=== PATIENT | female | born 1965 | race African-American/Black ===

== ENCOUNTER 2017-07-09 22:51 | Observation (INO) | payer OTHER ==
[2017-07-09 23:23] LABS: #Basophils 0.1 thou/uL (0.0-0.2); #Eosinphils 0.1 thou/uL (0.0-0.7); #Lymphocytes 1.7 thou/uL (1.20-3.40); #Monocytes 0.4 thou/uL (0.11-0.59); #Neutrophils 3.9 thou/uL (1.40-6.50); %Basophils 0.9 % (0.0-1.0); %Eosinophils 2.3 % (0.0-10.0); %Lymphocytes 26.9 % (21.0-51.0); %Monocytes 6.9 % (0.0-10.0); Hemoglobin 12.4 g/dL (12.0-16.0); Mean Corpuscular HGB CONC 31.7 g/dL (32.0-36.0); Mean Corpuscular Hemoglobin 29.5 pg (27.0-31.0); Mean Corpuscular Volume 92.8 fl (81.0-99.0); Mean Platelet Volume 6.8 fL (7.4-10.4); Platelet Count 317 thou/uL (130-400); RBC Distribution Width 12.3 % (11.5-14.5); Red Blood Cell (RBC) Count 4.19 mill/uL (4.20-5.40); White Blood Cell (WBC) Count 6.1 thou/uL (4.8-10.8)
[2017-07-09 23:23] LABS: Bilirubin Negative (Negative); Blood, Urine Negative (Negative); Clarity CLEAR (Clear); Glucose, Urine (Dipstick) Negative (Negative); Leukocyte Negative (Negative); Nitrite Negative (Negative); Protein, Urine (Dipstick) Trace mg/dL (Neg-Trace); Specific Gravity, Urine 1.018 (1.002-1.036); pH, Urine 7.5 (5.0-9.0)
[2017-07-09 23:46] LABS: ALT (SGPT) 18 U/L (8-55); AST (SGOT) 26 U/L (5-34); Albumin 3.9 g/dL (3.5-5.0); Alkaline Phosphatase 76 U/L (40-150); Anion Gap 12 mmol/L (10-20); BUN (Urea Nitrogen) 14 mg/dL (9.8-20.1); Bilirubin, Total 0.5 mg/dL (0.2-1.2); Calc. Creatinine Clearance 0 mL/min (70-130); Calcium 9.9 mg/dL (7.8-10.44); Carbon Dioxide 25 mmol/L (22-29); Chloride 106 mmol/L (98-107); Estimated GFR-MDRD Greater than 90; Globulin 4.5 g/dL (2.4-3.5); Glucose 117 mg/dL (70-105); Lipase 34 U/L (8-78); Potassium 4.2 mmol/L (3.5-5.1); Protein, Total 8.4 g/dL (6.0-8.3); Sodium 139 mmol/L (136-145)
[2017-07-10] MEDS ORDERED: Morphine 4 MG/ML VIAL ONE (00:11)
[2017-07-10] MEDS ORDERED: Ondansetron HCl/PF 4 MG/2 ML Vial ONE ×2 (00:12→11:56)
[2017-07-10] MEDS ORDERED: Piperacillin/Tazobactam 3.375 GM in Sodium Chloride 0.9% 100 ML IVPB SCH ×2 (02:00→12:00)
[2017-07-10] MEDS ORDERED: Morphine 4 MG/ML VIAL SLOW IVP PRN (03:21)
[2017-07-10] MEDS: Sodium Chloride 0.45% 1,000 ML IV SCH ×2 (03:30→14:39)
[2017-07-10 04:37] VITALS: BMI 35.7
[2017-07-10 07:27] VITALS: TEMP 97.6
--- NOTE | 2017-07-10 09:40 | HP ---
CHIEF COMPLAINT: Abdominal pain. HISTORY OF PRESENT ILLNESS: Ms. Lin is a 51-year-old woman who presented to the emergency room w ith acute on chronic abdominal pain. She states this pain is in the pit of her stomach and radiates around the right side to her back and up to her shoulder. She has had this pain intermittently for t he past couple of months. It is usually dull, but she will have episodes of sharp pain. She has bee n to the [facility] for this problem in the past and told to follow up with a general julia geon for her gallbladder, but had not yet done so. Yesterday, the pain became quite severe, so she c mela back to the emergency room and was found to have evidence of acute cholecystitis on imaging, she had pericholecystic fluid and gallbladder wall thickening on CT scan and on ultrasound. She was admi tted and placed on IV antibiotics and is feeling somewhat better this morning. She states that she h as some low grade fevers and feels cold. She has had nausea, but no vomiting. Her bowel habits have been normal. She has been feeling somewhat weak over the past 2 months and is unsure whether this i s related to the gallbladder. She has been told in the past that she is anemic as well. She has not had any melena or hematochezia. PAST MEDICAL HISTORY: Hypertension. PAST SURGICAL HISTORY: None. FAMILY HISTORY: Her mother, sisters and daughter have all had gallbladder disease and had their gall bladders removed. SOCIAL HISTORY: She does not smoke or use illicit drugs. She drinks rarely, about once a month. 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 REVIEW OF SYSTEMS: Ten system review of systems is negative except per HPI and some sinus congestion . She has occasional pain in her chest with a deep breath, but not exertional. Intermittent right a nkle swelling and pain for many months, she has seen a gusset edger for this and told she probably has a stress fracture, but no imaging has been done. OUTPATIENT MEDICATIONS: Include lisinopril/hydrochlorothiazide 20/25 mg p.o. daily, amlodipine 10 mg p.o. daily and Loratadine 10 mg p.o. daily as needed. INPATIENT MEDICATIONS: Include Zosyn and morphine. PHYSICAL EXAMINATION: VITAL SIGNS: The patient has been afebrile since her admission. Heart rate 59, respirations 22, 100 % saturated on room air, blood pressure 108/58. GENERAL: Reveals a pleasant woman, in no acute distress. She is not jaundiced or icteric. HEENT: Unremarkable. NECK: Supple, without lymphadenopathy or thyroid nodules. HEART: Regular in its rate and rhythm without murmurs, rubs or gallops. LUNGS: Clear to auscultation bilaterally. ABDOMEN: Soft and nondistended. She has tenderness to palpation in the epigastric and right upper q uadrant area. No palpable masses or hernias. EXTREMITIES: Warm and well perfused. She has normal pedal pulses. She is tender to palpation over the right medial malleolus, but there is no evidence of swelling or effusion. NEUROLOGIC: No focal deficits. PSYCHIATRIC: Alert, oriented, and appropriate. LABORATORY DATA: White count is normal at 6.1, hematocrit is normal at 38.9 and platelets are 317. Electrolytes are unremarkable and LFTs are normal. Lipase is also normal and a UA is clear. IMAGING: CT and ultrasound images are reviewed and I agree with the verbal report from the ER physic lashay and she has stones in her gallbladder with pericholecystic fluid and gallbladder wall thickening, her common bile duct is normal in caliber under 4 mm. ASSESSMENT: Cholelithiasis with acute on chronic cholecystitis. PLAN: I have recommended laparoscopic cholecystectomy for symptomatic relief. The procedure and its inherent risks were discussed in detail with the patient. These risks include, but are not limited to bleeding, infection, risks of anesthesia, damage to nearby structures including bowel, liver and b ile duct, need for open procedures, need for further procedures. She understands and accepts these r isks and wishes to proceed. She will be maintained on IV antibiotics until her operation. All of he r questions were answered.
[2017-07-10] MEDS ORDERED: Midazolam HCl 2 mg/2 ml Vial ONE (10:34)
[2017-07-10] MEDS ORDERED: Fentanyl 100 MCG/2 ML VIAL ONE (10:34)
[2017-07-10] MEDS ORDERED: Bupivacaine/Epinephrine 0.25% 30 ML VIAL ONE (10:35)
--- NOTE | 2017-07-10 10:43 | CT ---
PRELIMINARY REPORT/[facility]/EMERGENCY AFTER HOURS PROCEDURE: EXAM: CT Abdomen and Pelvis With Intravenous Contrast CLINICAL HISTORY: 51 years old, female; Pain; Abdominal pain; Generalized TECHNIQUE: Axial computed tomography images of the abdomen and pelvis with intravenous contrast. Coronal reformatted images were created and reviewed. CONTRAST: 100 mL of ISOVUE administered intravenously. COMPARISON: No relevant prior studies available. FINDINGS: Lower thorax: No acute findings. ABDOMEN: Liver: Normal. Gallbladder and bile ducts: Cholelithiasis, with gallbladder wall thickening and gallbladder enlargem ent, compatible with cholecystitis. No biliary dilation. Pancreas: Normal. Spleen: Normal. Adrenals: Normal. Kidneys and ureters: Normal. Stomach and bowel: Normal. Appendix: Appendix is normal. PELVIS: Bladder: Normal. Reproductive: Dystrophic calcifications within the uterine myometrium, likely degenerating fibroids. ABDOMEN and PELVIS: Intraperitoneal space: Normal. No free air. No significant fluid collection. Bones/joints: See above. Soft tissues: Normal. Vasculature: Phleboliths within the pelvis. No abdominal aortic aneurysm. Lymph nodes: Normal. IMPRESSION: 1. Cholelithiasis, with gallbladder wall thickening and gallbladder enlargement, compatible with chol ecystitis. No biliary dilation. Recommend assessment of biliary enzymes and consider gallbladder ultr asound for more definitive evaluation. 2. Incidental/non-acute findings are described above. Thank you for allowing us to participate in the care of your patient. Dictated and Authenticated by: Larry Regan MD 07/10/2017 12:58 AM Central Time ([place] & [place]) FINAL REPORT ABDOMEN CT WITH CONTRAST PELVIC CT WITH CONTRAST: Date: 07/10/17 HISTORY: Right upper quadrant pain. COMPARISON: None. TECHNIQUE: Abdomen and pelvic CT are performed with IV contrast. Enteric contrast was not administered. Coronal reformatted images are submitted for interpretation. FINDINGS: This report is in agreement with the preliminary report by [facility]. There is CT evidence of cholelithias is, as well as cholecystitis. Correlate clinically. Possible uterine leiomyoma with calcification. POS: [facility]
--- NOTE | 2017-07-10 10:51 | ULT ---
PRELIMINARY REPORT/[facility]/EMERGENCY AFTER HOURS PROCEDURE: EXAM: US Abdomen Limited, Right Upper Quadrant CLINICAL HISTORY: 51 years old, female; Pain; Other: Abd pain, HX of gallstones TECHNIQUE: Real-time ultrasound of the right upper quadrant with image documentation. COMPARISON: CT Abdomen Pelvis W Con 2017-07-10 00:31 FINDINGS: Liver: Normal. No mass. No intrahepatic bile duct dilation. Gallbladder: Gallbladder is enlarged, measuring 12.2 cm in greatest dimension. Multiple echogenic, sh adowing foci within the gallbladder, compatible with calcified gallstones. Gallbladder wall is thicke flo and heterogeneous in echotexture, measuring 7 mm. Small amount of pericholecystic fluid. Common bile duct: Common bile duct measures 4 mm in diameter. No stones. No dilation. Pancreas: Normal as visualized. Right kidney: Right kidney is normal in appearance and measures 10.4 cm in length. No stones. No hydr onephrosis. IMPRESSION: Cholelithiasis, with sonographic evidence of acute cholecystitis. No biliary dilation. Thank you for allowing us to participate in the care of your patient. Dictated and Authenticated by: Larry Regan MD 07/10/2017 3:17 AM Central Time ([place] & [place]) FINAL REPORT GALLBLADDER ULTRASOUND: Date: 07/10/17 HISTORY: Abdominal pain. Evaluate for cystitis. Patient has a history of gallstones. COMPARISON: None. TECHNIQUE: Utilizing a multihertz transducer, sonographic imaging of the right upper quadrant is performed in th e longitudinal and transverse plane. FINDINGS: This report is in agreement with the preliminary report by [facility]. There is sonographic evidence of cho lelithiasis. Gallbladder wall is thickened and there is pericholecystic fluid. Stitch Bonding Machine Operator reports a slight Ramos's sign. POS: [facility]
[2017-07-10] MEDS ORDERED: ISOVUE-370 76%-LOCM 1 ML ONE (11:42)
[2017-07-10] MEDS ORDERED: Iothalamate Meglumine 60% 50 ML VIAL FS ONE (11:44)
--- NOTE | 2017-07-10 11:55 | RAD ---
RIGHT ANKLE 3 VIEWS: Date: 07/10/17 INDICATION: Pain. Intermittent edema. FINDINGS: No fracture or dislocation. Mortise is intact. There is mild soft tissue swelling, medially. IMPRESSION: No acute osseous abnormalities of right ankle. POS: [facility]
[2017-07-10] MEDS ORDERED: PROPOFOL 200 MG/20 ML VIAL ONE (11:56)
[2017-07-10] MEDS ORDERED: Lidocaine 1% PF 5 ML VIAL ONE (11:56)
[2017-07-10] MEDS ORDERED: Glycopyrrolate 0.2 MG/ML 5 ML SYRINGE ONE (11:56)
[2017-07-10] MEDS ORDERED: Ketorolac Tromethamine 30 MG/ML VIAL ONE (11:56)
--- NOTE | 2017-07-10 12:05 | RAD ---
INTRAOPERATIVE CHOLANGIOGRAM: Date: 07/10/17 COMPARISON: None. EXPOSURE: 3.27 mGy*cm^2. 18 seconds. FINDINGS: Two intraoperative fluoroscopic images demonstrate cannulation of the cystic duct. There is opacifica tion of a normal caliber common bile duct. The central intrahepatic biliary system is also normal in caliber. Contrast does pass from the common bile duct into the small bowel. IMPRESSION: Fluoroscopy as above. POS: [facility]
[2017-07-10] MEDS ORDERED: Morphine 4 MG/ML VIAL IV PRN ×2 (14:05→14:06)
[2017-07-10] MEDS ORDERED: Promethazine 25 MG TAB PO PRN (14:06)
[2017-07-10] MEDS ORDERED: HYDROcodone/Acetaminophen 7.5/325 mg Tablet PO PRN ×2 (14:07)
[2017-07-10] MEDS ORDERED: traMADol HCl 50 MG TAB PO PRN ×2 (14:08)
[2017-07-10] MEDS: Piperacillin/Tazobactam 3.375 GM in Sodium Chloride 0.9% 100 ML IVPB SCH ×2 (14:38→14:40)
[2017-07-10] MEDS ORDERED: Promethazine HCl 25 MG/ML VIAL IM PRN (14:53)
[2017-07-10] MEDS ORDERED: Ondansetron HCl/PF 4 MG/2 ML Vial IVP SCH (14:53)
[2017-07-10] MEDS ORDERED: Promethazine HCl 25 MG/ML VIAL SLOW IVP PRN (14:53)
[2017-07-10 16:34] VITALS: BP 122/71
--- NOTE | 2017-07-16 16:06 | PDOC.OP ---
Operative Note - Operative Note Operative Note: PROCEDURE: Laparoscopic cholecystectomy with intraoperative cholangiogram SURGEON: Elsa Grider M.D. DATE OF PROCEDURE: 07/10/2017 PREOPERATIVE DIAGNOSIS: Cholelithiasis and cholecystitis POSTOPERATIVE DIAGNOSIS: Cholelithiasis and cholecystitis HISTORY: Patient who presented to the hospital with signs and symptoms of cholecystitis. Recommendation was made to proceed with laparoscopic cholecystectomy for symptomatic relief. FINDINGS: Hydropic gallbladder with omental adhesions. Multiple stones impacted in the cystic duct. These were able to be extruded but a cholangiogram was obtained due to this finding. This did not reveal any evidence of stones in the main bile duct. PROCEDURE IN DETAIL: After informed consent was obtained and appropriate preoperative antibiotics were administered, the patient was taken to the operating room and placed in the supine position and general endotracheal anesthesia was administered. The stomach was decompressed with an OG tube and the abdomen was prepped and draped in standard sterile fashion. Local anesthesia was infused to the skin and subcutaneous tissues at the umbilical level. A transverse skin incision was made. The fascia was elevated and a Veress needle was placed into the abdominal cavity without difficulty. Opening pressure was less than 5 and carbon dioxide gas easily insufflated to an intra- abdominal pressure of 15, which the patient tolerated well. The Veress needle was withdrawn and a Lindsay port advanced under direct vision. The abdominal cavity was carefully examined. There was no evidence of Veress needle or of trocar injury. Local anesthesia was infused to the skin and subcutaneous tissues at the epigastric, right upper quadrant, and right lateral abdominal sites and trocars were placed under direct vision of the laparoscope. The gallbladder was massively distended and too tense to grasp therefore it was aspirated with removal of a large amount of clear colorless bile. The fundus of the gallbladder was grasped and retracted superiorly. Omental adhesions were stripped inferiorly revealing the infundibulum. The infundibulum was grasped and retracted laterally. The serosa was stripped inferiorly at the level of the neck of the gallbladder exposing the cystic duct and artery which were traced clearly to their insertion in the gallbladder. These were dissected free circumferentially and the cystic duct was clipped at the level of the neck of the gallbladder. The cystic artery was clipped but not divided. An incision was made in the cystic duct inferior to the clip and the cystic duct was palpated with multiple stones palpable. These were able to be milked upward and extruded through the incision in the cystic duct. Clear bile was then seen to flow from the cystic duct incision. A cholangiogram catheter was introduced and placed into the cystic duct and secured with a clip. A cholangiogram was obtained which showed an adequate length of cystic duct. There was normal filling of the common bile duct with free flow of contrast into the duodenum. There was normal retrograde flow into the common hepatic duct beyond the level of the bifurcation without filling defects. The cholangiogram catheter was removed and the cystic duct clipped below the incision in the cystic duct. The cystic duct was divided between these clips and the previously placed clip. The cystic artery was clipped and divided between the previously placed clips. The gallbladder was then dissected free of the gallbladder bed using hook electrocautery. Prior to complete removal of the gallbladder from the gallbladder bed, the area of the cystic duct and artery stumps was examined. The clips were in good position completely across these structures and there was no bleeding and no leakage of bile. The gallbladder was then placed into an EndoCatch bag and drawn out through the epigastric incision. This required dilation of the incision to allow the thickened gallbladder, still within the Endo Catch bag, to be drawn up partially out of the abdominal cavity. The gallbladder was incised and innumerable stones removed from the gallbladder following which the gallbladder was small enough to remove through the epigastric incision. The epigastric trocar was replaced and the operative site easily irrigated to clear. There was no significant bleeding or spillage of bile. The epigastric trocar was removed and the fascia closed under direct laparoscopic vision with a 0 Vicryl suture on a GraNee needle in a figure-of- eight manner with excellent technical result. The right upper quadrant and right lateral abdominal trocars were removed and hemostasis verified. Carbon dioxide gas was allowed to desufflate through the umbilical trocar which was then removed. The skin incisions were closed with 4-0 subcuticular Monocryl sutures and Dermabond dressings were placed. The patient was extubated and taken to the recovery room in good condition. There were no complications. ESTIMATED BLOOD LOSS: Minimal. SPECIMEN : Gallbladder and contents.
--- NOTE | 2017-08-28 22:41 | EKG ---
Test Reason : Blood Pressure : / mmHG Vent. Rate : 060 BPM Atrial Rate : 060 BPM P-R Int : 152 ms QRS Dur : 092 ms QT Int : 432 ms P-R-T Axes : 040 012 019 degrees QTc Int : 432 ms Normal sinus rhythm Minimal voltage criteria for LVH, may be normal variant Borderline ECG Confirmed by MARVEL MORAN ([id number]), news copy editor MIRANDA BECKER ([id number]) on 08/28/2017 10:40:20 PM Referred By: Confirmed By:MARVEL MORAN
== END 2017-07-10 19:44 | disposition home or self-care (01) ==
LOC: ERS 22:51 → ONC 07-10 02:02
PROVIDERS: ADMIT Surgery; ATTEND Surgery
PROC: 0FT44ZZ Resection of Gallbladder, Percutaneous Endoscopic Approach (ICD-10-PCS; principal; 2017-07-10)
PROC: BF031ZZ Plain Radiography of Gallbladder and Bile Ducts using Low Osmolar Contrast (ICD-10-PCS; 2017-07-10)
DX: K80.10 Calculus of gallbladder with chronic cholecystitis without obstruction (principal); K66.0 Peritoneal adhesions (postprocedural) (postinfection); I10 Essential (primary) hypertension
CPT/HCPCS: 47532; 74177; 76705; 80053; 81003; 83690; 85025; 88304; 93005; 96361; 96365; 96375; G0378; J1610; J1885; J2001; J2250; J2270; J2405; J2543; J2704; J3010; J7050; Q9961

== ENCOUNTER 2017-09-25 02:25 | Observation (INO) | payer OTHER ==
[2017-09-25] MEDS ORDERED: Nitroglycerin 2% Ointment 1 INCH/1 GM Packet ONE (03:43)
[2017-09-25 03:54] LABS: CKMB 2.2 ng/mL (0-6.6); Troponin I Less than 0.010 ng/mL (< 0.028)
[2017-09-25] MEDS ORDERED: Ondansetron ODT 4 MG TAB SL PRN (05:52)
[2017-09-25] MEDS ORDERED: Ondansetron PF 4 MG/2 ML Vial IVP PRN ×2 (05:52→06:18)
[2017-09-25 05:58] VITALS: BMI 36.1
[2017-09-25] MEDS ORDERED: Calcium Carbonate 500 MG ChewTAB PO PRN (06:18)
[2017-09-25] MEDS ORDERED: Nitroglycerin 0.4 MG TAB (25 Tab Bottle) PO PRN (06:18)
[2017-09-25] MEDS ORDERED: Mag-Al 1200 mg/1200 mg/30 ML UDCUP PO PRN (06:18)
[2017-09-25] MEDS ORDERED: Bisacodyl 10 MG SUPP PR PRN (06:18)
[2017-09-25] MEDS ORDERED: Ondansetron ODT 4 MG TAB PO PRN (06:18)
[2017-09-25] MEDS ORDERED: Acetaminophen 325 MG TAB PO PRN (06:18)
[2017-09-25] MEDS ORDERED: Senokot 8.6 MG TAB PO PRN (06:18)
[2017-09-25] MEDS ORDERED: Milk Of Magnesia 30 ML UDCUP PO PRN (06:18)
[2017-09-25] MEDS ORDERED: Loratadine 10 MG TAB PO PRN (06:22)
[2017-09-25] MEDS: Nitroglycerin 2% Ointment 1 INCH/1 GM Packet TOP SCH ×2 (06:39→14:42)
[2017-09-25 07:04] LABS: Troponin I Less than 0.010 ng/mL (< 0.028)
--- NOTE | 2017-09-25 08:10 | ULT ---
RIGHT UPPER QUADRANT ULTRASOUND: Date: 09/25/17 HISTORY: Abdominal pain and elevated LFTs. FINDINGS: The liver demonstrates homogeneous echotexture without focal mass or intrahepatic ductal dilatation. The patient is post cholecystectomy. The common duct measures 6.0 mm in diameter. Right kidney and pa ncreas are unremarkable. No free fluid is seen in the right upper quadrant. IMPRESSION: Status post cholecystectomy, otherwise unremarkable exam. POS: [facility]
[2017-09-25] MEDS ORDERED: Aspirin 325 mg Enteric Coated Tablet PO SCH (09:00)
[2017-09-25] MEDS: Aspirin 325 MG TAB PO SCH (09:19)
[2017-09-25] MEDS: Famotidine 20 MG TAB PO SCH ×2 (09:19→19:46)
[2017-09-25] MEDS: Lisinopril/Hydrochlorothiazide 20/25 mg Tablet PO SCH (09:19)
[2017-09-25] MEDS: Amlodipine 10 MG TAB PO SCH (09:19)
[2017-09-25 10:02] LABS: Troponin I Less than 0.010 ng/mL (< 0.028)
[2017-09-25] MEDS: Sodium Chloride 0.9% 1,000 ML IV SCH (11:17)
--- NOTE | 2017-09-25 11:40 | HP ---
DATE OF ADMISSION: 09/25/2017 PRIMARY CARE PHYSICIAN: Peyton Sampson M.D. CHIEF COMPLAINT: Epigastric pain traveling up into the chest, going to the back. HISTORY OF PRESENTING ILLNESS: Ms. Dali Queen is a pleasant 51-year-old -Citizen Of [place] fema le with past medical history of hypertension, history of cholelithiasis and cholecystitis, status pos t laparoscopic cholecystectomy on 07/2017; who presented to the emergency room with above-mentioned c omplaint. History is mainly obtained by the patient herself and electronic medical records have been reviewed. Ms. Lin presented to [facility] emergency room yesterday with these complaints. She reports t hat she has been feeling fine when suddenly the pain hit her. She describes this pain as sharp in na ture and rates it as 10/10 in intensity. It started in her upper epigastric, lower substernal area w ent around to her back under her left breast. Nothing that she could think of made this pain better. She could not remember any inciting factors either. She denies any nausea, vomiting, or diarrhea. She denies any shortness of breath. She has been in her usual health without any sick contacts. No recent illnesses like fever or chills, sore throat or rhinorrhea. She did have one episode of vomit ing, but other than that the pain was pretty much constant. Upon presentation to the emergency room, she was hemodynamically stable with blood pressure of 124/81 , pulse of 69, saturation is 99% on room air. She was tender to palpation in the epigastric region. She underwent a 12-lead EKG which was unremarkable and cardiac enzymes which were normal. She did r eceive aspirin, sublingual nitroglycerin and a GI cocktail with some improvement in her pain. She wa s transferred to our facility for further evaluation. In the emergency room in [facility], she was still hemodynamically stable. Hence we were called to admit her to rule out ACS. So far, he r cardiac enzymes including troponin have been negative x4. She has been pain free for now. PAST MEDICAL HISTORY: 1. Hypertension. 2. History of cholelithiasis and cholecystitis, status post laparoscopic cholecystectomy on 07/2017. PAST SURGICAL HISTORY: Cholecystectomy. PSYCHIATRIC HISTORY: No anxiety or depression. 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 She has no history of drug, tobacco or alc ohol abuse. She lives at home with family. FAMILY HISTORY: She denies any recent traumas or lifting heavy weights. ALLERGIES: No known medication allergies. CURRENT MEDICATIONS: Amlodipine 10 mg daily, lisinopril, or/hydrochlorothiazide 20/25 mg daily. FAMILY HISTORY: Significant for SD in her brother. Hypertension also runs in her family. REVIEW OF SYSTEMS: The following complete review of systems was negative, unless otherwise mentioned in the HPI or below: Constitutional: Weight loss or gain, ability to conduct usual activities. Skin: Rash, itching. Eyes: Double vision, pain. ENT/Mouth: Nose bleeding, neck stiffness, pain, tenderness. Cardiovascular: Palpitations, dyspnea on exertion, orthopnea. Respiratory: Shortness of breath, wheezing, cough, hemoptysis, fever or night sweats. Gastrointestinal: Poor appetite, abdominal pain, heartburn, nausea, vomiting, constipation, or diarr hea. Genitourinary: Urgency, frequency, dysuria, nocturia. Musculoskeletal: Pain, swelling. Neurologic/Psychiatric: Anxiety, depression. Allergy/Immunologic: Skin rash, bleeding tendency. It is negative except for those mentioned in the history and physical. LABORATORY DATA AND IMAGING DATA: 1. CBC is rather within normal limits. Serum chemistries show AST elevated at 166, ALT 75. Her tot al bilirubin and alkaline phosphatase are within normal limits. Troponin less than 0.010 x4. CK-MB normal at 2.2. Lipase was not checked and urine was not checked. 2. Chest x-ray by my review has no evidence to suggest pleural effusion, edema or infiltrate. 3. A 12-lead EKG by my review shows normal sinus rhythm without any acute ST or T-wave changes. Tirso e left ventricular hypertrophy has noticed. PHYSICAL EXAMINATION: VITAL SIGNS: Most recent vital signs include temperature 97.5, heart rate anywhere from 57-61, respi rations 16, saturating 100% on room air, blood pressure 110/66. GENERAL: In no acute distress. She does appear somewhat tired, but awake, alert, and oriented x3. HEENT: Mucous membranes moist and pink. No oropharyngeal exudate or erythema. Head is normocephali c, atraumatic. Pupils are equally reactive to light and accommodation. Extraocular movements intact . NECK: Supple without any lymphadenopathy, JVD or bruit. CHEST: Clear to auscultation without any wheezing, rales or rhonchi. Rate and rhythm is regular wit hout any murmur, rubs or gallop. She is somewhat tender to palpation in the left anterior chest. ABDOMEN: Soft and nondistended with positive bowel sounds. She is not significantly tender to palpa tion in the epigastric region either. Mild CVA tenderness noticed on both sides which can be subject aman. EXTREMITIES: Free of any cyanosis, clubbing, or edema. NEUROLOGIC: Examination is nonfocal. SKIN: Free of any rashes or bruises. Feels warm and dry to touch. PSYCHIATRIC: Normal affect. IMPRESSION AND PLAN: 1. Epigastric pain and chest pain. Etiology is unclear at this time. It can possibly be musculoske letal pain versus something as serious as pancreatitis or ACS. At this time, an extensive workup has started. We will go ahead and obtain a nuclear medicine stress test given multiple risk factors for this patient. She has received aspirin and nitroglycerin in the emergency room and we will continue with daily dose of aspirin until ACS has been ruled out. Continue her lisinopril, hydrochlorothiazi de and amlodipine and provide better blood pressure control. She is n.p.o. for now for the stress te st, we will start him on gentle intravenous fluid hydration. We will also check her urinalysis to ru le out urinary tract infection as the patient gives some history of increased frequency and there is some mild CVA tenderness on examination. No antibiotics indicated at this time. 2. The patient has elevated LFTs, almost 5 times the upper limit of normal. She is status post lapa roscopic cholecystectomy and post-cholecystectomy syndrome cannot be ruled out at this time. We will check amylase and lipase to rule out pancreatitis given her symptoms of epigastric pain going to her back. She is currently symptom free. Continue n.p.o. status as well as IV fluids until pancreatiti s was ruled out. She has undergone an abdominal ultrasound which does not show any retained stones o r inflammation in the right upper quadrant area. 3. History of hypertension. Resume her home medications and monitor blood pressure closely. 4. Elevated liver enzymes as above. If her amylase and lipase is indeed elevated, we will consult G astroenterology and she might benefit from ERCP or MRCP. We will follow up. 5. Deep venous thrombosis and gastrointestinal prophylaxis. 6. Code status: FULL CODE. Discussed with the patient and son. DISPOSITION: Ms. Lin is currently being admitted under observation status for further workup of chest pain and epigastric pain. Further management will depend upon her clinical course.
[2017-09-25 12:44] LABS: Bilirubin Negative (Negative); Blood, Urine Negative (Negative); Clarity CLEAR (Clear); Glucose, Urine (Dipstick) Negative (Negative); Leukocyte Negative (Negative); Nitrite Negative (Negative); Protein, Urine (Dipstick) Negative (Neg-Trace); Specific Gravity, Urine 1.019 (1.002-1.036); Urobilinogen 0.2 mg/dL (0.2-1.0)
[2017-09-25] MEDS ORDERED: ADENOSINE 60 MG/20 ML VIAL ONE (12:59)
[2017-09-25 16:40] LABS: ALT (SGPT) 71 U/L (8-55); AST (SGOT) 82 U/L (5-34); Albumin 3.8 g/dL (3.5-5.0); Alkaline Phosphatase 94 U/L (40-150); Bilirubin, Direct 0.4 mg/dL (0.1-0.3); Bilirubin, Total 0.9 mg/dL (0.2-1.2); Protein, Total 7.8 g/dL (6.0-8.3)
--- NOTE | 2017-09-25 18:04 | EKG ---
Test Reason : Blood Pressure : / mmHG Vent. Rate : 055 BPM Atrial Rate : 055 BPM P-R Int : 162 ms QRS Dur : 094 ms QT Int : 440 ms P-R-T Axes : 043 015 030 degrees QTc Int : 420 ms Sinus bradycardia Minimal voltage criteria for LVH, may be normal variant Borderline ECG Confirmed by DANICA BARRON, ANGÉLICA ([id number]), restaurant expeditor MIRANDA BECKER ([id number]) on 09/25/2017 6:03:47 PM Referred By: Confirmed By:ANGÉLICA MISHRA MD
[2017-09-26] MEDS: Sodium Chloride 0.9% 1,000 ML IV SCH (01:23)
[2017-09-26 08:12] VITALS: BP 120/68; TEMP 98.1
[2017-09-26] MEDS: Amlodipine 10 MG TAB PO SCH (09:31)
[2017-09-26] MEDS: Famotidine 20 MG TAB PO SCH (09:31)
[2017-09-26] MEDS: Aspirin 325 MG TAB PO SCH (09:31)
[2017-09-26] MEDS: Lisinopril/Hydrochlorothiazide 20/25 mg Tablet PO SCH (09:31)
--- NOTE | 2017-09-26 10:25 | NM ---
CARDIAC SPECT: CLINICAL HISTORY: 51-year-old female with chest pain and hypertension. Family history of coronary artery disease. TECHNIQUE: A myocardial perfusion scan was performed using the single isotope two day protocol with 32 mCi techn etium-99m sestamibi injected intravenously for both stress and rest images. Pharmacologic stress with Adenosine was monitored and interpreted by Dr. Salas. FINDINGS: Fairly homogeneous tracer distribution is seen in the myocardial segments on stress and rest images w ithout fixed or reversible defects. GATED SPECT LVEF: 65%. WALL MOTION EXAM: Normal. IMPRESSION: Normal myocardial perfusion scan. POS: [facility]
--- NOTE | 2017-09-26 12:02 | DIS ---
DATE OF ADMISSION: 09/25/2017 DATE OF DISCHARGE: 09/26/2017 CONDITION AT THE TIME OF DISCHARGE: Stable and improved. DISCHARGE DIAGNOSES: 1. Chest pain and epigastric pain likely musculoskeletal, acute coronary syndrome ruled out. 2. Elevated liver enzymes of unclear significance trending down with negative ultrasound of the gall bladder and the liver. 3. History of hypertension. PRIMARY CARE PHYSICIAN: Peyton Sampson MD DISCHARGE MEDICATIONS: Remain the same as home medication including lisinopril/hydrochlorothiazide 2 0/25 mg daily and amlodipine 10 mg daily. PROCEDURES DONE IN THE HOSPITAL: Include: 1. Abdominal ultrasound, which shows status post cholecystectomy, otherwise unremarkable exam. Ther e are no focal liver masses or intrahepatic ductal dilatation, the CBD measures 6 mm, no free fluid i n the right upper quadrant. 2. Nuclear medicine cardiac stress test, which is unremarkable. No fixed or reversible defects, EF estimated at 65%. HISTORY OF PRESENT ILLNESS: Ms. Lin is a pleasant 51-year-old -French female with past medical history of hypertension and cholelithiasis, status post cholecystectomy in 07/2017, who prese nted to the emergency room with complaints of epigastric pain and lower substernal pain going to her back. She was admitted for ACS rule out and further investigation. Upon presentation, she was hemod ynamically stable with normal cardiac enzymes and normal 12-lead EKG. Her liver enzymes were found t o be elevated with AST of 166 and ALT of 75 with normal alkaline phosphatase and normal bilirubin. HOSPITAL COURSE: The patient underwent general evaluation and telemetry monitoring. Her symptoms di d not return throughout her hospitalization. She underwent abdominal ultrasound for the elevated arlette er enzymes, and rechecked the lipase which was also normal. Abdominal ultrasound did not show any CB D dilatation on retained stones. The etiology of elevated LFTs is unclear, but they did trend down t he subsequent day. Her AST today is 82. ALT is still 71, which was 75 on admission. She also underwent nuclear medicine stress testing, which was negative for cardiac ischemia. Serial cardiac enzymes were done was unremarkable. The patient was seen and examined prior to discharge. She is back to her baseline and feeling very w ell. PHYSICAL EXAMINATION: This morning include: VITAL SIGNS: Temperature 98.1, pulse 55, respirations 16, blood pressure 120/68, and saturating 99% on room air. GENERAL: No acute distress, awake, alert, and oriented x3. CHEST: Clear to auscultation without any wheezing, rales or rhonchi. HEART: Rate and rhythm is regular without any murmur, rubs or gallops. ABDOMEN: Soft, nontender, nondistended. EXTREMITIES: Free of any cyanosis, clubbing, or edema. The patient is instructed to follow with the primary care physician in 1-2 weeks and she verbalized u nderstanding.
--- NOTE | 2017-10-11 14:07 | STRESS ---
Acquisition Time: 2017-09-25 13:24:40 Total Exercise Time: 00:04:00 Test Indications: CHEST PAIN Medications: Protocol: ADENOSINE Max HR: 106 BPM 62% of Pred: 169 BPM Max BP: 140/084 mmHG Max Work Load: 1.0 METS RESTING ECG: NORMAL SINUS RHYTHM SYMPTOMS: NONE NORMAL BP RESPONSE ECTOPY: NONE ECG STRESS: NO SIGNIFICANT CHANGES INTERPRETATION: NEGATIVE ECG/AWAIT NUCLEAR IMAGES FOR DEFINITIVE DIAGNOSIS Confirmed by DR. Zachery MOON ([id number]), assistant film editor RAVI HOSKINS ([id number]) on 10/11/2017 2:06:29 PM Referred By: MD Vy BUSH Confirmed By:DR. Zachery MOON
== END 2017-09-26 13:10 | disposition home or self-care (01) ==
LOC: ERS 02:25 → 2SW 05:39
PROVIDERS: ADMIT Internal Medicine; ATTEND Internal Medicine
DX: R10.13 Epigastric pain (principal); R07.2 Precordial pain; I10 Essential (primary) hypertension; R74.8 Abnormal levels of other serum enzymes; Z79.899 Other long term (current) drug therapy; Z90.49 Acquired absence of other specified parts of digestive tract
CPT/HCPCS: 36415; 76705; 78452; 81003; 82150; 83690; 93005; 93017; 94760; 96360; 96361; A9500; G0378; J0153